=== PATIENT | female | born 1990 | race American Indian/Alaskan Native ===

== ENCOUNTER 2016-08-27 14:23 | Inpatient (IN) | payer MEDICAID ==
[2016-08-27 15:00] LABS: Urine Drugs of Abuse Note Disclamer
[2016-08-27 15:17] LABS: Bacteria,Urine 1+ /HPF (Negative); Bilirubin,Urine NEG (Negative); Blood,Urine NEG (Negative); Ketones,Urine TR mg/dL (Negative); Leukocyte Esterase,Urine LG (Negative); Mucus,Urine 3+ /HPF; Nitrite,Urine NEG (Negative); Uric Acid Crystals,Urine 2+; Urobilinogen,Urine < 2.0 mg/dL (<2.0)
[2016-08-27] MEDS ORDERED: NORMODYNE IV PRN (17:23)
--- NOTE | 2016-08-27 17:42 | History and Physical Report ---
History of Present Illness Date of examination: 08/27/16 Chief complaint: No care History of present illness: A 25-year-old at 34+1 week (ALYSSA 10/07/16 via sono today in triage) presents to [facility] for care. Essential history this patient with no care this . Was seen at an outside clinic and told to proceed to the hospital as her gestational age was too advanced. Gives a history of 2 prior complicated by pre-E Past History Past Medical History: no pertinent history Past Surgical History: section [employer] History: herpes. denies: cancer, chlamydia, gonorrhea, hepatitis B, hepatitis C, HIV, syphilis Social history: single, full code. denies: smoking, alcohol abuse, prescription drug abuse, IV drug use - Obstetrical History Expected Date of Delivery: 10/07/16 Actual Gestation: 34 Week(s) 1 Day(s) : 3 Para: 2 Hx # Term Pregnancies: 0 Number of Pregnancies: 2 Number of Living Children: 2 Medications and Allergies Allergies Allergy/AdvReac Type Severity Reaction Status Date / Time No Known Allergies Allergy Verified 02/02/16 02:25 Home Medications Medication Instructions Recorded Confirmed Last Taken Type No Known Home Medications [No 02/02/16 02/02/16 Unknown History Reported Home Medications] Active Meds: Active Medications Hydralazine HCl (Apresoline) 5 mg IV Q30MIN PRN PRN Reason: HTN SYS BP>170 & OR SERGIO BP>110 Lactated Ringer's (Lactated Ringers) 1,000 mls @ 125 mls/hr IV DIRECT KRYSTAL Labetalol HCl (Normodyne) 20 mg IV ONCE PRN PRN Reason: Hypertension Stop: 08/27/16 17:24 Labetalol HCl (Normodyne) 200 mg PO BID [facility] Review of Systems Constitutional: no weight gain, no fever, no chills, no sweats Cardiovascular: no syncope, no lightheadedness, no shortness of breath Respiratory: no shortness of breath, no dyspnea on exertion Gastrointestinal: heartburn, no abdominal pain, no nausea, no diarrhea Genitourinary: no vaginal bleeding, no vaginal discharge, no leakage of fluid, no pelvic pain, no genital sores - Vital Signs Vital signs: Vital Signs Temp Resp 97.7 F 18 08/27/16 15:10 08/27/16 15:10 Temp Pulse Resp BP Pulse Ox 97.7 F 18 08/27/16 15:10 08/27/16 15:10 - Physical Exam Cardiovascular: Regular rate, Normal S1, Normal S2 Lungs: Positive: Clear to auscultation, Normal air movement Abdomen: Positive: normal appearance, soft. Negative: distention, tenderness, guarding, rigidity Genitourinary (Female): Positive: normal external genitalia Results Abnormal lab results 08/27/16 Range/Units Unknown Urine WBC (Auto) 22.0 H (0.0-6.0) /HPF U Epithel Cells (Auto) 22.0 H (0-13.0) /HPF All other labs normal. Assessment and Plan A: 25 y/o at 34+1 wks -BP ~ 140-150/80-100's Issues -No PNC this -Elevated blood pressure -Previous 1 -Oral history of preeclampsia 2 -Fundal placenta w/ cephalic presentstaion P: -Admit -Obtain HELLP labs and 24-hour urine protein -Celestone course -Start magnesium or antihypertensives for BP severe range -Emphasized importance of obtaining care -Disposition after labs complete - Patient Problems (1) 34 weeks gestation of Current Visit: Yes Status: Acute (2) No care in current Current Visit: Yes Status: Acute (3) Hypertension affecting Current Visit: Yes Status: Acute (4) Previous delivery affecting Current Visit: Yes Status: Acute
[2016-08-27] MEDS: CELESTONE SOLUSPAN IM SCH (19:36)
[2016-08-27] MEDS: NORMODYNE PO SCH ×2 (20:39→22:59)
[2016-08-27 20:47] LABS: Albumin 3.4 g/dL (3.9-5); Albumin/Globulin Ratio 1.4 %; Alkaline Phosphatase 122 units/L (35-129); Bilirubin,Total 0.4 mg/dL (0.1-1.2); Blood Urea Nitrogen 5 mg/dL (7-17); Calcium 8.5 mg/dL (8.4-10.2); Carbon Dioxide 21 mmol/L (22-30); Chloride 97.1 mmol/L (98-107); Glucose 81 mg/dL (65-100); Potassium 4.2 mmol/L (3.6-5.0); Sodium 133 mmol/L (137-145); Total Protein 5.8 g/dL (6.3-8.2)
[2016-08-27 20:50] LABS: Alanine Aminotransferase < 5 units/L (7-56); Anion Gap 19 mmol/L
[2016-08-27 21:16] LABS: HIV-1 Antigen p24 Non React (Non React); HIVR-1/2 Ab Non React (Non React)
[2016-08-27] MEDS: ALUM-MAG HYDROX-SIMETH 200-200-20MG/5ML PO PRN (21:31)
[2016-08-27] MEDS: LACTATED RINGERS 1,000 ML IV SCH (21:33)
--- NOTE | 2016-08-28 08:32 | Progress Note ---
Assessment and Plan A: 25 y/o at 34+2 wks -New onset headache this a.m. Issues -BP ~ 140-180/60-100's -No PNC this -Previous 1 -Oral history of preeclampsia 2 -Fundal placenta w/ cephalic presentation -Negative HELLP labs Meds: -Labetalol 200mg BID -s/p 1st dose Celestone on 08/27/16 at ~ 19:30 P: -Tylenol for headache at this time -MFM consult requested -24 hour urine protein to be completed at ~ 8-9 PM -Consider magnesium if headache not relieved with Analgesic - Patient Problems (1) 34 weeks gestation of Current Visit: Yes Status: Acute (2) No care in current Current Visit: Yes Status: Acute (3) Hypertension affecting Current Visit: Yes Status: Acute (4) Previous delivery affecting Current Visit: Yes Status: Acute Subjective - Subjective Date of service: 08/28/16 Interval history: Patient seen and examined, she has a headache this morning. No scotomata, no epigastric pain. Positive movement BP still labile with range ~ 140s to 180s over 60s to 100s; she is on labetalol 200 mg twice a day. Patient reports: new complaints (New onset headache), movement normal, no loss of fluid, no vaginal bleeding, no contractions Objective - Vital Signs Vital Signs: Vital Signs - 12hr 08/27/16 08/27/16 08/27/16 20:27 20:32 20:37 Temperature Pulse Rate 83 89 85 Pulse Rate [ From Monitor] Respiratory Rate Blood Pressure Blood Pressure [Right Arm] O2 Sat by Pulse 96 96 97 Oximetry 08/27/16 08/27/16 08/27/16 20:39 20:40 20:42 Temperature Pulse Rate 77 86 77 Pulse Rate [ From Monitor] Respiratory Rate Blood Pressure 153/111 153/111 Blood Pressure [Right Arm] O2 Sat by Pulse 96 Oximetry 08/27/16 08/27/16 08/27/16 20:47 20:52 20:54 Temperature Pulse Rate 84 85 77 Pulse Rate [ From Monitor] Respiratory Rate Blood Pressure 155/100 Blood Pressure [Right Arm] O2 Sat by Pulse 96 97 Oximetry 08/27/16 08/27/16 08/27/16 20:57 20:58 21:05 Temperature Pulse Rate 92 H 56 L 105 H Pulse Rate [ From Monitor] Respiratory Rate Blood Pressure Blood Pressure [Right Arm] O2 Sat by Pulse 96 81 L 97 Oximetry 08/27/16 08/27/16 08/27/16 21:09 21:10 21:15 Temperature Pulse Rate 85 88 83 Pulse Rate [ From Monitor] Respiratory Rate Blood Pressure 168/97 Blood Pressure [Right Arm] O2 Sat by Pulse 94 98 94 Oximetry 08/27/16 08/27/16 08/27/16 21:27 21:30 21:32 Temperature 97.6 F Pulse Rate 79 92 H Pulse Rate [ From Monitor] Respiratory 20 Rate Blood Pressure Blood Pressure [Right Arm] O2 Sat by Pulse 97 96 Oximetry 08/27/16 08/27/16 08/27/16 21:38 21:40 21:54 Temperature Pulse Rate 80 85 86 Pulse Rate [ From Monitor] Respiratory Rate Blood Pressure 159/93 140/89 139/87 Blood Pressure [Right Arm] O2 Sat by Pulse Oximetry 08/27/16 08/27/16 08/27/16 22:10 22:24 23:30 Temperature Pulse Rate 87 104 H 86 Pulse Rate [ From Monitor] Respiratory Rate Blood Pressure 146/78 142/87 121/67 Blood Pressure [Right Arm] O2 Sat by Pulse Oximetry 08/28/16 08/28/16 08/28/16 00:30 01:31 02:30 Temperature Pulse Rate 101 H 96 H 73 Pulse Rate [ From Monitor] Respiratory Rate Blood Pressure 124/75 155/98 182/107 Blood Pressure [Right Arm] O2 Sat by Pulse Oximetry 08/28/16 08/28/16 08/28/16 02:40 04:34 04:35 Temperature Pulse Rate 86 91 H 95 H Pulse Rate [ From Monitor] Respiratory Rate Blood Pressure 142/82 134/83 Blood Pressure [Right Arm] O2 Sat by Pulse 96 Oximetry 08/28/16 08/28/16 08/28/16 04:42 08:07 08:08 Temperature 97.6 F 98.8 F Pulse Rate 99 H Pulse Rate [ 102 H From Monitor] Respiratory 20 18 Rate Blood Pressure 140/85 Blood Pressure 140/85 [Right Arm] O2 Sat by Pulse 97 97 Oximetry - Exam Abdomen: Present: normal appearance, soft. Absent: distention, tenderness, guarding, rigidity - Labs Labs: Abnormal Labs 08/27/16 08/27/16 19:45 Unknown Sodium 133 L Chloride 97.1 L Carbon Dioxide 21 L BUN 5 L Creatinine 0.4 L ALT < 5 L Total Protein 5.8 L Albumin 3.4 L Urine WBC (Auto) 22.0 H U Epithel Cells (Auto) 22.0 H Laboratory Results - last 24 hr 08/27/16 08/27/16 08/27/16 19:45 19:45 19:45 Sodium 133 L Potassium 4.2 Chloride 97.1 L Carbon Dioxide 21 L Anion Gap 19 BUN 5 L Creatinine 0.4 L Estimated GFR > 60 BUN/Creatinine Ratio 12.50 Glucose 81 Calcium 8.5 Total Bilirubin 0.4 AST 15 ALT < 5 L Alkaline Phosphatase 122 Total Protein 5.8 L Albumin 3.4 L Albumin/Globulin Ratio 1.4 Urine Color Urine Turbidity Urine pH Ur Specific Pepin Urine Protein Urine Glucose (UA) Urine Ketones Urine Blood Urine Nitrite Urine Bilirubin Urine Urobilinogen Ur Leukocyte Esterase Urine WBC (Auto) Urine RBC (Auto) U Epithel Cells (Auto) Urine Bacteria (Auto) Uric Acid Crystals Urine Mucus Urine Opiates Screen Urine Methadone Screen Ur Barbiturates Screen Ur Phencyclidine Scrn Ur Amphetamines Screen U Benzodiazepines Scrn Urine Cocaine Screen U Marijuana (THC) Screen Drugs of Abuse Note Hep Bs Antigen Non-reactive Hepatitis C Antibody Non-reactive HIV 1&2 Antibody Rapid HIV P24 Antigen Rubella IgG Antibody Immune 08/27/16 08/27/16 08/27/16 19:45 Unknown Unknown Sodium Potassium Chloride Carbon Dioxide Anion Gap BUN Creatinine Estimated GFR BUN/Creatinine Ratio Glucose Calcium Total Bilirubin AST ALT Alkaline Phosphatase Total Protein Albumin Albumin/Globulin Ratio Urine Color Shefali Urine Turbidity Clear Urine pH 5.0 Ur Specific Pepin 1.028 Urine Protein 30 mg/dl Urine Glucose (UA) Neg Urine Ketones Tr Urine Blood Neg Urine Nitrite Neg Urine Bilirubin Neg Urine Urobilinogen < 2.0 Ur Leukocyte Esterase Lg Urine WBC (Auto) 22.0 H Urine RBC (Auto) 7.0 U Epithel Cells (Auto) 22.0 H Urine Bacteria (Auto) 1+ Uric Acid Crystals 2+ Urine Mucus 3+ Urine Opiates Screen Presumptive negative Urine Methadone Screen Presumptive negative Ur Barbiturates Screen Presumptive negative Ur Phencyclidine Scrn Presumptive negative Ur Amphetamines Screen Presumptive negative U Benzodiazepines Scrn Presumptive negative Urine Cocaine Screen Presumptive negative U Marijuana (THC) Screen Presumptive negative Drugs of Abuse Note Disclamer Hep Bs Antigen Hepatitis C Antibody HIV 1&2 Antibody Rapid Non react HIV P24 Antigen Non react Rubella IgG Antibody
[2016-08-28] MEDS: TYLENOL PO PRN ×2 (08:38→15:43)
[2016-08-28] MEDS: NORMODYNE PO SCH ×2 (10:20→22:22)
--- NOTE | 2016-08-28 11:28 | Ultrasound Report ---
OB ULTRASOUND: Transabdominal imaging. Gestation: Spears Position: Cephalic Amniotic Fluid: WNL (7-24 cm) KARLIE = 11.2 cm Placenta: Fundal Placental Grade: I Heart Rate: 148 BPM Cervical length: 3.0 cm (Normal > 3 cm) NEUROANATOMY VISUALIZED: Choroid Plexus Lateral Ventricle ANATOMY VISUALIZED: Stomach Kidneys Bladder Diaphragm 4 Chamber Heart Heart 3 Vessel Cord Abd. Cord Insert SPINE VISUALIZED: Longitudinal Transverse AP The following are not demonstrated due to maternal body habitus or lie: Cerebellum, cisterna magnum. BPD: 8.6 cm = 34 w 5 d HC: 31.0 cm = 34 w 4 d AC: 28.2 cm = 32 w 2 d FL: 6.8 cm = 34 w 6 d HC/AC Ratio: 1.10 Cephalic Index: 83.9 Estimated Weight: 2211 grams LMP: 12-18-15 Clinical age = 36 w 1 d EDC: 09-23-16 US Gest. Age = 34 w 1 d EDC: 10-07-16 COMMENT: No gestational abnormality identified.
[2016-08-28] MEDS: ALUM-MAG HYDROX-SIMETH 200-200-20MG/5ML PO PRN ×3 (11:48→20:46)
--- NOTE | 2016-08-28 13:32 | Consultation ---
History of Present Illness Consult date: 08/28/16 Requesting physician: NIKUNJ MONROE History of present illness: History of present illness: 25-year-old at 34+2 week (ALYSSA 10/07/16 via sono today in triage) presents to [facility] for care. No Care History of Preeclampsia X 2 at 35 weeks and 30 weeks with Abruption Presented with Elevated BP's - 182/107 and 155/98 - Now on Labetalol 100 mg BID and recent BP's 130-140's/80's RUBIO on admission of 04/02 now resolved. Denies Scotoma or RUQ Pain Trace Edema Essential history this patient with no care this . Was seen at an outside clinic and told to proceed to the hospital as her gestational age was too advanced. 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 denies: cancer, chlamydia, gonorrhea, hepatitis B, hepatitis C, HIV, syphilis Social history: single, full code. 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 denies: cancer, chlamydia, gonorrhea, hepatitis B, hepatitis C, HIV, syphilis - Obstetrical History : 3 Medications and Allergies Allergies Allergy/AdvReac Type Severity Reaction Status Date / Time No Known Allergies Allergy Verified 02/02/16 02:25 Home Medications Medication Instructions Recorded Confirmed Last Taken Type No Known Home Medications [No 02/02/16 08/27/16 Unknown History Reported Home Medications] Active Meds: Active Medications Acetaminophen (Tylenol) 650 mg PO Q4H PRN PRN Reason: Pain, Mild (1-3) Last Admin: 08/28/16 08:38 Dose: 650 mg Al Hydrox/Mg Hydrox/Simethicone (Alum-Mag Hydrox-Simeth [id number]/5ml) 30 ml PO Q4H PRN PRN Reason: Indigestion Last Admin: 08/28/16 11:48 Dose: 30 ml Betamethasone Acet/Betameth SodPhos (Celestone Soluspan) 12 mg IM Q24H KRYSTAL Stop: 08/28/16 18:01 Last Admin: 08/27/16 19:36 Dose: 12 mg Hydralazine HCl (Apresoline) 5 mg IV Q30MIN PRN PRN Reason: HTN SYS BP>170 & OR SERGIO BP>110 Lactated Ringer's (Lactated Ringers) 1,000 mls @ 125 mls/hr IV DIRECT [facility] Last Admin: 08/27/16 21:33 Dose: 125 mls/hr Labetalol HCl (Normodyne) 200 mg PO BID KRYSTAL Last Admin: 08/28/16 10:20 Dose: 200 mg - Vital Signs Vital signs: Vital Signs Temp Resp 97.7 F 18 08/27/16 15:10 08/27/16 15:10 Temp Pulse Resp BP Pulse Ox 98.6 F 109 H 18 134/83 98 08/28/16 11:52 08/28/16 11:52 08/28/16 11:52 08/28/16 11:52 08/28/16 11:52 Results Result Diagrams: 08/27/16 19:45 Abnormal lab results 08/27/16 08/27/16 Range/Units 19:45 Unknown Sodium 133 L (137-145) mmol/L Chloride 97.1 L (98-107) mmol/L Carbon Dioxide 21 L (22-30) mmol/L BUN 5 L (7-17) mg/dL Creatinine 0.4 L (0.7-1.2) mg/dL ALT < 5 L (7-56) units/L Total Protein 5.8 L (6.3-8.2) g/dL Albumin 3.4 L (3.9-5) g/dL Urine WBC (Auto) 22.0 H (0.0-6.0) /HPF U Epithel Cells (Auto) 22.0 H (0-13.0) /HPF All other labs normal. Assessment and Plan Assesment 1. Spears IUP at 34 2/7 weeks 2. Suspected H/O of CHTN (BP was elevated after first preg per patient) 3. R/O Superimposed Preeclampsia 4. H/O Preeclampsia X 2 (Second Preg with Abruption at 30 weeks) 5. No Care 6. HSV II Recommendations: 1. Currently on Labetalol 100 BID ordered by OB 2. Steroids X 2 3. NICU Consult 4. BPP with Cord Arterial Dopplers 5. CBC and HbA1c (patient has not had 1 Hour GTT and received steroids) 6. 24 Hour urine pending 7. Try to obtain medical records and past C/S Op note 8. Deliver for S/S of severe preeclampsia or compromise 9. IV Hydralazine for BP' Sys > 170 or [place] > 110 10. Monitor Closely due to sig past OB history 11. Valtrex 500 q day
[2016-08-28] MEDS: LACTATED RINGERS 1,000 ML IV SCH (15:46)
[2016-08-28 16:29] LABS: Hematocrit 25.3 % (30.3-42.9); Hemoglobin 7.9 gm/dl (10.1-14.3); Mean Corpuscular HGB Conc 31 % (30-34); Mean Corpuscular Hemoglobin 21 pg (28-32); Mean Corpuscular Volume 67 fl (79-97); Platelet Count 166 K/mm3 (140-440); Red Blood Count 3.79 M/mm3 (3.65-5.03); Red Cell Distribution Width 16.4 % (13.2-15.2); White Blood Count 19.5 K/mm3 (4.5-11.0)
[2016-08-28] MEDS: VALTREX PO SCH (18:16)
[2016-08-28] MEDS: CELESTONE SOLUSPAN IM SCH (19:37)
[2016-08-29] MEDS: LACTATED RINGERS 1,000 ML IV SCH ×2 (01:52→15:10)
[2016-08-29] MEDS ORDERED: NACL 0.9% 500 ML 500 ML IV ONE (06:08)
[2016-08-29] MEDS: MAGNESIUM SULFATE 40GM/1000ML 1,000 ML IV SCH (07:06)
--- NOTE | 2016-08-29 08:18 | Ultrasound Report ---
BIOPHYSICAL PROFILE: INDICATION: Preeclampsia. COMPARISON: None similar. TECHNIQUE: Transabdominal ultrasound with Doppler interrogation. 2 - breathing movements 2 - movements 2 - posture and tone 2 - Qualitative amniotic fluid volume 8 - TOTAL SCORE OF POSSIBLE 8 Heart Rate (bpm) 152
[2016-08-29] MEDS: NORMODYNE PO SCH ×2 (10:13→22:59)
[2016-08-29] MEDS: VALTREX PO SCH (10:14)
--- NOTE | 2016-08-29 12:02 | Ultrasound Report ---
Umbilical cord Doppler imaging: Images of 33 umbilical cord loops demonstrates a persistent flow pattern with systolic over diastolic ratio averaging 2.46. This is within the 25-50 percentile range being close to 50%. The average resistive index is 0.59 which is within the 50-95 percentile range but much closer to the 50%.
[2016-08-29] MEDS: TYLENOL PO PRN ×2 (12:52→20:44)
--- NOTE | 2016-08-29 18:14 | Progress Note ---
Assessment and Plan A: IUP @ 34 3/7 weeks Chronic hypertension - stable on Labetolol 200mg BID Mild Preeclampsia - stable - s/p Celestone Previous C Section No care P: Continue to monitor BP's Appreciate APA input Will deliver for S/S of Severe Preeclampsia Subjective - Subjective Date of service: 08/29/16 Principal diagnosis: IUP @ 34 3/7 weeks; Previous C/S; Preeclampsia; No Care Interval history: Pt feeling well without complaints. Denies headaches or blurred vision. BP 122 /66 Currently on Labetolol 200mg BID Patient reports: new complaints (New onset headache), movement normal, no loss of fluid, no vaginal bleeding, no contractions Objective - Vital Signs Vital Signs: Vital Signs - 12hr 08/29/16 08/29/16 08/29/16 07:30 07:40 09:53 Temperature 98.6 F Pulse Rate 85 91 H Respiratory 18 Rate Blood Pressure 139/77 135/86 O2 Sat by Pulse Oximetry 08/29/16 08/29/16 08/29/16 10:13 10:43 11:43 Temperature Pulse Rate 91 H 90 102 H Respiratory Rate Blood Pressure 135/86 124/67 133/77 O2 Sat by Pulse Oximetry 08/29/16 08/29/16 08/29/16 12:47 12:51 13:43 Temperature 97.7 F Pulse Rate 96 H 103 H Respiratory 16 Rate Blood Pressure 131/75 121/68 O2 Sat by Pulse Oximetry 08/29/16 08/29/16 08/29/16 13:48 13:53 13:58 Temperature Pulse Rate 104 H 102 H 101 H Respiratory Rate Blood Pressure O2 Sat by Pulse 97 97 97 Oximetry 08/29/16 08/29/16 08/29/16 14:03 14:08 14:13 Temperature Pulse Rate 101 H 101 H 104 H Respiratory Rate Blood Pressure O2 Sat by Pulse 96 97 96 Oximetry 08/29/16 08/29/16 08/29/16 14:18 14:23 14:28 Temperature Pulse Rate 99 H 102 H 100 H Respiratory Rate Blood Pressure O2 Sat by Pulse 96 97 97 Oximetry 08/29/16 08/29/16 08/29/16 14:33 14:38 14:43 Temperature Pulse Rate 101 H 103 H 103 H Respiratory Rate Blood Pressure 121/69 O2 Sat by Pulse 97 97 96 Oximetry 08/29/16 08/29/16 08/29/16 14:48 14:53 14:58 Temperature Pulse Rate 102 H 98 H 101 H Respiratory Rate Blood Pressure O2 Sat by Pulse 97 97 97 Oximetry 08/29/16 08/29/16 08/29/16 15:03 15:08 15:13 Temperature Pulse Rate 101 H 99 H 105 H Respiratory Rate Blood Pressure O2 Sat by Pulse 97 97 97 Oximetry 08/29/16 08/29/16 08/29/16 15:18 15:23 15:28 Temperature Pulse Rate 98 H 101 H 98 H Respiratory Rate Blood Pressure O2 Sat by Pulse 97 97 97 Oximetry 08/29/16 08/29/16 08/29/16 15:33 15:38 15:43 Temperature Pulse Rate 97 H 99 H 94 H Respiratory Rate Blood Pressure 120/66 O2 Sat by Pulse 98 97 96 Oximetry 08/29/16 08/29/16 15:48 16:10 Temperature Pulse Rate 98 H 107 H Respiratory Rate Blood Pressure O2 Sat by Pulse 98 96 Oximetry - Exam Cardiovascular: Regular rate Lungs: Clear to auscultation Abdomen: Present: normal appearance, soft Uterus: Present: normal FHR: category 1 Uterine Contraction Monitor Mode: External Uterine Contraction Pattern: Absent - Labs Labs: Abnormal Labs 08/27/16 08/27/16 08/28/16 19:45 Unknown 04:00 WBC Hgb Hct MCV MCH RDW Sodium 133 L Chloride 97.1 L Carbon Dioxide 21 L BUN 5 L Creatinine 0.4 L Magnesium ALT < 5 L Total Protein 5.8 L Albumin 3.4 L Urine WBC (Auto) 22.0 H U Epithel Cells (Auto) 22.0 H Ur Total Protein 24 Hr 300.00 H Urine Total Protein 24 H Crossmatch 08/28/16 08/29/16 08/29/16 15:50 06:25 12:25 WBC 19.5 H Hgb 7.9 L Hct 25.3 L MCV 67 L MCH 21 L RDW 16.4 H Sodium Chloride Carbon Dioxide BUN Creatinine Magnesium 3.9 H ALT Total Protein Albumin Urine WBC (Auto) U Epithel Cells (Auto) Ur Total Protein 24 Hr Urine Total Protein Crossmatch See Detail Laboratory Results - last 24 hr 08/28/16 08/29/16 08/29/16 04:00 06:25 12:25 Magnesium 3.9 H Urine Total Volume 1250 Ur Total Protein 24 Hr 300.00 H Urine Total Protein 24 H Blood Type O NEGATIVE Antibody Screen Negative Crossmatch See Detail
--- NOTE | 2016-08-30 07:29 | Progress Note ---
Assessment and Plan A: IUP @ 34 4/7 weeks Chronic hypertension - stable on Labetolol 200mg BID Severe Preeclampsia - worsening symptoms - s/p Celestone Previous C Section No care P: Continue to monitor BP's Appreciate APA input Will proceed with Repeat C Section due to S/S of Severe Preeclampsia Subjective - Subjective Date of service: 08/30/16 Principal diagnosis: IUP @ 34 4/7 weeks; Previous C/S; Preeclampsia; No Care Interval history: Pt complaining of worsening headaches and blurred vision. BP 136/78 Currently on Labetolol 200mg BID Patient reports: new complaints (Worsening headache), movement normal, no loss of fluid, no vaginal bleeding, no contractions Objective - Vital Signs Vital Signs: Vital Signs - 12hr 08/29/16 08/29/16 08/29/16 19:28 19:47 20:44 Temperature 97.7 F Pulse Rate 94 H Pulse Rate [ 103 H From Monitor] Respiratory 14 16 Rate Blood Pressure 132/84 Blood Pressure 132/84 [Right Arm] 08/29/16 08/29/16 22:59 23:01 Temperature Pulse Rate 87 87 Pulse Rate [ From Monitor] Respiratory Rate Blood Pressure 136/78 136/78 Blood Pressure [Right Arm] - Exam Cardiovascular: Regular rate Lungs: Clear to auscultation Abdomen: Present: normal appearance Uterus: Present: normal FHR: category 1 Uterine Contraction Pattern: Absent - Labs Labs: Abnormal Labs 08/27/16 08/27/16 08/28/16 19:45 Unknown 04:00 WBC Hgb Hct MCV MCH RDW Sodium 133 L Chloride 97.1 L Carbon Dioxide 21 L BUN 5 L Creatinine 0.4 L Magnesium ALT < 5 L Total Protein 5.8 L Albumin 3.4 L Urine WBC (Auto) 22.0 H U Epithel Cells (Auto) 22.0 H Ur Total Protein 24 Hr 300.00 H Urine Total Protein 24 H Crossmatch 08/28/16 08/29/16 08/29/16 15:50 06:25 12:25 WBC 19.5 H Hgb 7.9 L Hct 25.3 L MCV 67 L MCH 21 L RDW 16.4 H Sodium Chloride Carbon Dioxide BUN Creatinine Magnesium 3.9 H ALT Total Protein Albumin Urine WBC (Auto) U Epithel Cells (Auto) Ur Total Protein 24 Hr Urine Total Protein Crossmatch See Detail 08/29/16 18:45 WBC Hgb Hct MCV MCH RDW Sodium Chloride Carbon Dioxide BUN Creatinine Magnesium 4.6 H ALT Total Protein Albumin Urine WBC (Auto) U Epithel Cells (Auto) Ur Total Protein 24 Hr Urine Total Protein Crossmatch Laboratory Results - last 24 hr 08/29/16 08/29/16 08/29/16 06:25 12:25 18:45 Magnesium 3.9 H 4.6 H Blood Type O NEGATIVE Antibody Screen Negative Crossmatch See Detail
[2016-08-30] MEDS ORDERED: REGLAN IV ONE (08:28)
[2016-08-30] MEDS ORDERED: BICITRA PO ONE (08:28)
[2016-08-30] MEDS ORDERED: PEPCID IV ONE (08:28)
[2016-08-30] MEDS: LACTATED RINGERS 1,000 ML IV SCH ×2 (08:43→19:55)
[2016-08-30] MEDS ORDERED: PITOCin/NS 20 UNIT/1000ML DRIP 1,000 ML IV NR (09:00)
[2016-08-30] MEDS ORDERED: LACTATED RINGERS 1,000 ML IV NR (09:00)
[2016-08-30] MEDS ORDERED: ANCEF/STERILE WATER 2 GM/20 ML 20 ML IV NR (09:00)
[2016-08-30] MEDS ORDERED: MORPHINE ONE (09:00)
[2016-08-30] MEDS ORDERED: XYLOCAINE MPF 2% ONE (09:29)
[2016-08-30] MEDS ORDERED: ZOFRAN ONE (09:30)
[2016-08-30] MEDS ORDERED: NACL 0.9% 100 ML ONE (09:43)
[2016-08-30] MEDS ORDERED: NEO SYNEPHRINE ONE (09:43)
[2016-08-30] MEDS ORDERED: VERSED ONE (09:53)
[2016-08-30] MEDS ORDERED: SENOKOT PO PRN (10:19)
[2016-08-30] MEDS ORDERED: MILK OF MAGNESIA PO PRN (10:19)
[2016-08-30] MEDS ORDERED: PHENERGAN PR PRN (10:19)
[2016-08-30] MEDS ORDERED: ZOFRAN IV PRN (10:19)
[2016-08-30] MEDS ORDERED: NARCAN 0.4 MG/1 ML IV PRN (10:19)
[2016-08-30] MEDS ORDERED: TUCKS PAD TP PRN (10:19)
[2016-08-30] MEDS ORDERED: LANSINOH TP PRN (10:19)
[2016-08-30] MEDS ORDERED: PERCOCET 5/325 PO PRN (10:19)
[2016-08-30] MEDS ORDERED: TORADOL IV PRN (10:19)
[2016-08-30] MEDS ORDERED: MYLICON PO PRN (10:19)
--- NOTE | 2016-08-30 10:36 | Anesthesia Consultation ---
Anesthesia Consult and Med Hx Date of service: 08/30/16 - Airway Anesthetic Teeth Evaluation: Good ROM Head & Neck: Adequate Mental/Hyoid Distance: Adequate Mallampati Class: Class II Intubation Access Assessment: Probably Good - Pulmonary Exam CTA: Yes - Cardiac Exam Cardiac Exam: RRR - Pre-Operative Health Status Proposed Anesthetic Plan: Spinal - Pulmonary Hx Asthma: No COPD: No Hx Pneumonia: No - Cardiovascular System Hx Hypertension: Yes (severe pre-eclampsia) Hx Coronary Artery Disease: No - Central Nervous System Hx Seizures: No Hx Psychiatric Problems: No - Endocrine Hx Renal Disease: No Hx End Stage Renal Disease: No Hx Hypothyroidism: No Hx Hyperthyroidism: No - Hematic Hx Anemia: Yes Hx Sickle Cell Disease: No - Other Systems Hx Alcohol Use: No Hx Obesity: Yes (bmi 32.9) - Additional Comments Anesthesia Medical History Comments: +34.4 wks
[2016-08-30] MEDS ORDERED: MORPHINE IV PRN (10:37)
--- NOTE | 2016-08-30 10:37 | Anesthesia Day of Surgery ---
Anesthesia Day of Surgery - Day of Surgery Patient Examined: Yes Patient H&P Reviewed: Yes Patient is NPO: Yes
--- NOTE | 2016-08-30 10:37 | Post Anesthesia Evaluation ---
- Post Anesthesia Evaluation Patient Participated: Yes Airway Patent: Yes Stable Respiratory Function: Yes Nausea/Vomiting: No Temp > 96.8F: Yes Pain Manageable: Yes Adequeate Hydration: Yes Anesthesia Complications: No Block Receding Appropriately: Yes Patient on Ventilator: No
[2016-08-30] MEDS: NORMODYNE PO SCH ×2 (10:38→21:48)
[2016-08-30] MEDS: MAGNESIUM SULFATE 40GM/1000ML 1,000 ML IV SCH (10:38)
[2016-08-30] MEDS: VALTREX PO SCH (10:39)
--- NOTE | 2016-08-30 10:39 | Operative Report ---
Operative Report Operative Report: Date of procedure: 08/30/2016 Pre-operative diagnosis: 1. Intrauterine at 34-4/7 weeks 2. Severe preeclampsia 3. Previous section 4. No care 5. Desires permanent sterilization Post-operative diagnosis: Same Procedure name(s): 1. Repeat low transverse section 2. Bilateral tubal ligation Surgeon: Jason Nevarez MD Harness Inspector: None Anesthesia: Spinal anesthesia by Dr. Campbell EBL: 500 mL's Findings: A 2470 g female infant Apgars 8 at 1 minute 9 at 5 minutes. Nuchal cord 2. Clear amniotic fluid. Normal uterus. Normal tubes and ovaries bilaterally Procedure: After the patient was prepped and draped in usual sterile fashion, and after satisfactory level of epidural anesthesia was obtained, the skin knife was used to make a transverse skin incision through the previous skin scar. The incision was excised down to layer of the fascia, which was nicked in the midline and extended laterally using the Bovie cautery. The rectus muscles were dissected off the rectus fascia both superiorly and inferiorly. The rectus bellies in the midline, and the peritoneum was entered under direct visualization. The peritoneal incision was extended superiorly and inferiorly. A bladder flap was created and the bladder blade was then placed. The uterus was scored in a curvilinear linear fashion, entered in the midline revealing clear amniotic fluid. The 's head was delivered onto the surgical field, nuchal cord 2 reduced, and the oropharynx and nasopharynx were bulb suctioned. The rest of the 's body was delivered, cord was doubly clamped and cut and the was handed to the waiting respiratory team. Cord blood was then obtained. The placenta was manually removed from the uterus, and the uterus removed from its normal anatomical position. After gentle uterine lavage, the incision was inspected and found to be without extensions. It was then closed in 2 layers using 0 Vicryl suture in a running interlocking fashion, the second layer imbricating the first. Attention was then turned to the tubal ligation. First the right fallopian tube was grasped using Miguel, and after identifying the fimbriated end of the right tube a Filshie clip was applied to the poximal portion of the tube. The same procedure was performed on the left fallopian tube. The left fallopian tube was grasped using the [place], and after identifying the fimbriated end of the left tube a Filshie clip was applied to the proximal portion of the tube. After good hemostasis was achieved, copious amounts or irrigation was performed, and the gutters were suctioned free of blood and blood clots. The Tisseel sealant was sprayed across the uterine incision. The uterus was then returned to its normal anatomical position, and after excellent hemostasis assured, the peritoneum was reapproximated using 3-0 Vicryl suture in a running interlocking fashion, and then the rectus muscles were reapproximated using 3-0 Vicryl suture in a [id number] configuration. The fascia was then reapproximated using 0 Vicryl suture in running interlocking fashion. The subcutaneous layer was made hemostatic using Bovie cautery, the Tisseel sealant was sprayed across the fascial incision and the skin edges reapproximated using 4-0 Vicryl suture in a subcuticular fashion. Patient tolerated the procedure well was transported to recovery in stable condition.
[2016-08-30] MEDS: APRESOLINE IV PRN (10:50)
[2016-08-30] MEDS ORDERED: PITOCin/NS 20 UNIT/1000ML DRIP 1,000 ML IV SCH (11:00)
[2016-08-30] MEDS ORDERED: D5LR 1,000 ML IV SCH (11:00)
[2016-08-30] MEDS ORDERED: ANCEF/NS 1 GM/50 ML 50 ML IV SCH (11:00)
[2016-08-30] MEDS ORDERED: SODIUM CHLORIDE FLUSH SYRINGE 10 ML IV NR (11:00)
[2016-08-30] MEDS ORDERED: WATER FOR IRRIG STERILE IR ONE (11:04)
[2016-08-30] MEDS ORDERED: NACL 0.9% IR ONE (11:04)
[2016-08-30] MEDS ORDERED: BENADRYL IV PRN (15:40)
[2016-08-30] MEDS ORDERED: BENADRYL PO PRN (15:41)
[2016-08-30] MEDS: ANCEF/NS 1 GM/50 ML 50 ML IV SCH ×2 (15:47→23:37)
[2016-08-30] MEDS ORDERED: BENADRYL IV ONE (19:00)
[2016-08-30 21:04] LABS: Hematocrit 25.6 % (30.3-42.9); Hemoglobin 7.9 gm/dl (10.1-14.3)
[2016-08-31] MEDS: MAGNESIUM SULFATE 40GM/1000ML 1,000 ML IV SCH (03:42)
--- NOTE | 2016-08-31 09:46 | Progress Note ---
Assessment and Plan A: S/P Repeat C Section with BTL - POD #1 Doing well Preeclampsia - currently on Magnesium sulfate and Labetolol 200mg BID No care P: Continue present management Will d/c magnesium sulfate after 24hrs Continue BP management - will add IV hydralazine to achieve control Subjective - Subjective Date of service: 08/31/16 Principal diagnosis: s/p Repeat C Section with BTL - POD #1 Interval history: Pt is feeling well, just sleepy. BP 162/100 Currently on Magnesium sulfate x 24hrs and Labetolol 200mg BID Patient reports: appetite normal, voiding normally (waters), pain well controlled , no flatus, no ambulating normally [place]: doing well, in NICU Objective - Vital Signs Latest vital signs: Vital Signs Temp Pulse Pulse Resp BP BP Pulse Ox 08/31/16 07:51 98.2 F 80 20 162/100 08/31/16 06:00 98.2 F 97 H 20 157/97 08/31/16 04:00 76 20 137/89 08/31/16 02:25 83 20 135/86 08/31/16 00:30 97.4 F L 64 20 143/95 08/30/16 21:48 86 156/90 08/30/16 21:43 20 08/30/16 20:15 97.9 F 64 18 143/96 08/30/16 18:28 97.8 F 67 18 155/95 08/30/16 16:20 97.8 F 70 20 147/91 08/30/16 13:45 97.5 F L 61 20 142/86 08/30/16 12:03 97.8 F 68 20 151/91 08/30/16 11:45 97.8 F 68 20 151/91 08/30/16 11:25 64 16 151/91 99 08/30/16 11:05 97.6 F 64 13 159/91 99 08/30/16 10:50 59 L 18 161/99 99 08/30/16 10:38 61 163/92 08/30/16 10:35 59 L 17 160/95 99 08/30/16 10:30 59 L 16 163/92 99 08/30/16 10:25 97.8 F 60 15 167/99 99 Intake and Output 08/30/16 08/31/16 08/31/16 22:59 06:59 14:59 Intake Total 900 1290 120 Output Total 900 2200 Balance 0 -910 120 Intake: IV 900 1050 Lactated Ringers 1,000 ml 450 600 @ 125 mls/hr IV DIRECT [facility] Rx#:[id number] Magnesium Sulfate 40Gm/ 400 400 1000ML 1,000 ml @ 2 GM/HR 50 mls/hr IV DIRECT KRYSTAL Rx#:[id number] Ancef/Ns 1 gm/50 ml 50 ml 50 50 @ 100 mls/hr IV Q8H KRYSTAL Rx#:[id number] Oral 120 Intake, Free Water 240 Output: Urine 900 2200 Indwelling Catheter 900 2200 Other: Total, Intake Amount 120 Total, Output Amount 400 1000 - Exam Cardiovascular: Present: Regular rate Lungs: Present: Clear to auscultation Abdomen: Present: normal appearance, soft Uterus: Present: normal, firm, fundal height below umbilicus Extremities: Present: normal Incision: Present: normal, dry, intact, dressed - Labs Labs: Abnormal lab results 08/30/16 08/30/16 Range/Units 20:50 20:50 Hgb 7.9 L (10.1-14.3) gm/dl Hct 25.6 L (30.3-42.9) % Magnesium 4.8 H (1.7-2.3) mg/dL Laboratory Tests 08/27/16 08/27/16 08/27/16 19:45 19:45 19:45 WBC RBC Hgb Hct MCV MCH MCHC RDW Plt Count Sodium 133 L Potassium 4.2 Chloride 97.1 L Carbon Dioxide 21 L Anion Gap 19 BUN 5 L Creatinine 0.4 L Estimated GFR > 60 BUN/Creatinine Ratio 12.50 Glucose 81 Hemoglobin A1c Calcium 8.5 Magnesium Total Bilirubin 0.4 AST 15 ALT < 5 L Alkaline Phosphatase 122 Total Protein 5.8 L Albumin 3.4 L Albumin/Globulin Ratio 1.4 Urine Color Urine Turbidity Urine pH Ur Specific [place] Urine Protein Urine Glucose (UA) Urine Ketones Urine Blood Urine Nitrite Urine Bilirubin Urine Urobilinogen Ur Leukocyte Esterase Urine WBC (Auto) Urine RBC (Auto) U Epithel Cells (Auto) Urine Bacteria (Auto) Uric Acid Crystals Urine Mucus Urine Total Volume Ur Total Protein 24 Hr Urine Total Protein Urine Opiates Screen Urine Methadone Screen Ur Barbiturates Screen Ur Phencyclidine Scrn Ur Amphetamines Screen U Benzodiazepines Scrn Urine Cocaine Screen U Marijuana (THC) Screen Drugs of Abuse Note RPR Hep Bs Antigen Non-reactive Hepatitis C Antibody Non-reactive HIV 1&2 Antibody Rapid HIV P24 Antigen Rubella IgG Antibody Immune Blood Type Antibody Screen Screen Crossmatch 08/27/16 08/27/16 08/27/16 19:45 19:45 Unknown WBC RBC Hgb Hct MCV MCH MCHC RDW Plt Count Sodium Potassium Chloride Carbon Dioxide Anion Gap BUN Creatinine Estimated GFR BUN/Creatinine Ratio Glucose Hemoglobin A1c Calcium Magnesium Total Bilirubin AST ALT Alkaline Phosphatase Total Protein Albumin Albumin/Globulin Ratio Urine Color [place] Urine Turbidity Clear Urine pH 5.0 Ur Specific [place] 1.028 Urine Protein 30 mg/dl Urine Glucose (UA) Neg Urine Ketones Tr Urine Blood Neg Urine Nitrite Neg Urine Bilirubin Neg Urine Urobilinogen < 2.0 Ur Leukocyte Esterase Lg Urine WBC (Auto) 22.0 H Urine RBC (Auto) 7.0 U Epithel Cells (Auto) 22.0 H Urine Bacteria (Auto) 1+ Uric Acid Crystals 2+ Urine Mucus 3+ Urine Total Volume Ur Total Protein 24 Hr Urine Total Protein Urine Opiates Screen Urine Methadone Screen Ur Barbiturates Screen Ur Phencyclidine Scrn Ur Amphetamines Screen U Benzodiazepines Scrn Urine Cocaine Screen U Marijuana (THC) Screen Drugs of Abuse Note RPR Nonreactive Hep Bs Antigen Hepatitis C Antibody HIV 1&2 Antibody Rapid Non react HIV P24 Antigen Non react Rubella IgG Antibody Blood Type Antibody Screen Screen Crossmatch 08/27/16 08/28/16 08/28/16 Unknown 04:00 15:50 WBC 19.5 H RBC 3.79 Hgb 7.9 L Hct 25.3 L MCV 67 L MCH 21 L MCHC 31 RDW 16.4 H Plt Count 166 Sodium Potassium Chloride Carbon Dioxide Anion Gap BUN Creatinine Estimated GFR BUN/Creatinine Ratio Glucose Hemoglobin A1c Calcium Magnesium Total Bilirubin AST ALT Alkaline Phosphatase Total Protein Albumin Albumin/Globulin Ratio Urine Color Urine Turbidity Urine pH Ur Specific [place] Urine Protein Urine Glucose (UA) Urine Ketones Urine Blood Urine Nitrite Urine Bilirubin Urine Urobilinogen Ur Leukocyte Esterase Urine WBC (Auto) Urine RBC (Auto) U Epithel Cells (Auto) Urine Bacteria (Auto) Uric Acid Crystals Urine Mucus Urine Total Volume 1250 Ur Total Protein 24 Hr 300.00 H Urine Total Protein 24 H Urine Opiates Screen Presumptive negative Urine Methadone Screen Presumptive negative Ur Barbiturates Screen Presumptive negative Ur Phencyclidine Scrn Presumptive negative Ur Amphetamines Screen Presumptive negative U Benzodiazepines Scrn Presumptive negative Urine Cocaine Screen Presumptive negative U Marijuana (THC) Screen Presumptive negative Drugs of Abuse Note Disclamer RPR Hep Bs Antigen Hepatitis C Antibody HIV 1&2 Antibody Rapid HIV P24 Antigen Rubella IgG Antibody Blood Type Antibody Screen Screen Crossmatch 08/28/16 08/29/16 08/29/16 15:50 06:25 12:25 WBC RBC Hgb Hct MCV MCH MCHC RDW Plt Count Sodium Potassium Chloride Carbon Dioxide Anion Gap BUN Creatinine Estimated GFR BUN/Creatinine Ratio Glucose Hemoglobin A1c 5.0 Calcium Magnesium 3.9 H Total Bilirubin AST ALT Alkaline Phosphatase Total Protein Albumin Albumin/Globulin Ratio Urine Color Urine Turbidity Urine pH Ur Specific [place] Urine Protein Urine Glucose (UA) Urine Ketones Urine Blood Urine Nitrite Urine Bilirubin Urine Urobilinogen Ur Leukocyte Esterase Urine WBC (Auto) Urine RBC (Auto) U Epithel Cells (Auto) Urine Bacteria (Auto) Uric Acid Crystals Urine Mucus Urine Total Volume Ur Total Protein 24 Hr Urine Total Protein Urine Opiates Screen Urine Methadone Screen Ur Barbiturates Screen Ur Phencyclidine Scrn Ur Amphetamines Screen U Benzodiazepines Scrn Urine Cocaine Screen U Marijuana (THC) Screen Drugs of Abuse Note RPR Hep Bs Antigen Hepatitis C Antibody HIV 1&2 Antibody Rapid HIV P24 Antigen Rubella IgG Antibody Blood Type O NEGATIVE Antibody Screen Negative Screen Crossmatch See Detail 08/29/16 08/30/16 08/30/16 18:45 20:50 20:50 WBC RBC Hgb Hct MCV MCH MCHC RDW Plt Count Sodium Potassium Chloride Carbon Dioxide Anion Gap BUN Creatinine Estimated GFR BUN/Creatinine Ratio Glucose Hemoglobin A1c Calcium Magnesium 4.6 H 4.8 H Total Bilirubin AST ALT Alkaline Phosphatase Total Protein Albumin Albumin/Globulin Ratio Urine Color Urine Turbidity Urine pH Ur Specific [place] Urine Protein Urine Glucose (UA) Urine Ketones Urine Blood Urine Nitrite Urine Bilirubin Urine Urobilinogen Ur Leukocyte Esterase Urine WBC (Auto) Urine RBC (Auto) U Epithel Cells (Auto) Urine Bacteria (Auto) Uric Acid Crystals Urine Mucus Urine Total Volume Ur Total Protein 24 Hr Urine Total Protein Urine Opiates Screen Urine Methadone Screen Ur Barbiturates Screen Ur Phencyclidine Scrn Ur Amphetamines Screen U Benzodiazepines Scrn Urine Cocaine Screen U Marijuana (THC) Screen Drugs of Abuse Note RPR Hep Bs Antigen Hepatitis C Antibody HIV 1&2 Antibody Rapid HIV P24 Antigen Rubella IgG Antibody Blood Type O NEGATIVE Antibody Screen Negative Screen Negative Crossmatch 08/30/16 20:50 WBC RBC Hgb 7.9 L Hct 25.6 L MCV MCH MCHC RDW Plt Count Sodium Potassium Chloride Carbon Dioxide Anion Gap BUN Creatinine Estimated GFR BUN/Creatinine Ratio Glucose Hemoglobin A1c Calcium Magnesium Total Bilirubin AST ALT Alkaline Phosphatase Total Protein Albumin Albumin/Globulin Ratio Urine Color Urine Turbidity Urine pH Ur Specific [place] Urine Protein Urine Glucose (UA) Urine Ketones Urine Blood Urine Nitrite Urine Bilirubin Urine Urobilinogen Ur Leukocyte Esterase Urine WBC (Auto) Urine RBC (Auto) U Epithel Cells (Auto) Urine Bacteria (Auto) Uric Acid Crystals Urine Mucus Urine Total Volume Ur Total Protein 24 Hr Urine Total Protein Urine Opiates Screen Urine Methadone Screen Ur Barbiturates Screen Ur Phencyclidine Scrn Ur Amphetamines Screen U Benzodiazepines Scrn Urine Cocaine Screen U Marijuana (THC) Screen Drugs of Abuse Note RPR Hep Bs Antigen Hepatitis C Antibody HIV 1&2 Antibody Rapid HIV P24 Antigen Rubella IgG Antibody Blood Type Antibody Screen Screen Crossmatch
[2016-08-31] MEDS: PRENATAL VITAMIN PO SCH (09:59)
[2016-08-31] MEDS: FEOSOL PO SCH (09:59)
[2016-08-31] MEDS: NORMODYNE PO SCH ×2 (10:00→23:00)
[2016-08-31] MEDS: NORCO 5/325 PO PRN ×2 (10:00→14:57)
[2016-08-31] MEDS ORDERED: BOOSTRIX IM ONE (10:21)
[2016-08-31] MEDS ORDERED: M-M-R II VACCINE SUB-Q ONE (10:21)
[2016-08-31] MEDS ORDERED: FLUARIX QUAD 2016-2017(36 MOS+) IM ONE (12:00)
[2016-08-31] MEDS: APRESOLINE IV PRN (12:53)
[2016-08-31] MEDS: MOTRIN PO PRN ×2 (14:57→23:43)
[2016-09-01] MEDS ORDERED: BOOSTRIX IM ONE (06:00)
[2016-09-01] MEDS: MOTRIN PO PRN ×4 (06:01→23:53)
--- NOTE | 2016-09-01 07:33 | Progress Note ---
Assessment and Plan POD # 2 s/p Repeat LTCS and BTL -Feels dizzy P: -Repeat H&H now -Increase labetalol to 400 mg twice a day, consider added Procardia if no effect -Disposition after results - Patient Problems (1) 34 weeks gestation of Current Visit: Yes Status: Acute (2) No care in current Current Visit: Yes Status: Acute (3) Hypertension affecting Current Visit: Yes Status: Acute (4) Previous delivery affecting Current Visit: Yes Status: Acute Subjective - Subjective Date of service: 09/01/16 Principal diagnosis: s/p Repeat C Section with BTL - POD #2 Interval history: Patient seen and examined, she is feeling dizzy. Blood pressure still labile with systolic in the 160s Patient reports: appetite normal, voiding normally, dizzy ambulation, pain well controlled [place]: in NICU Objective - Vital Signs Latest vital signs: Vital Signs Temp Pulse Pulse Resp BP BP 09/01/16 06:01 18 09/01/16 04:30 62 20 163/92 09/01/16 00:00 98.8 F 80 20 151/90 08/31/16 23:43 18 08/31/16 23:00 80 158/95 08/31/16 20:50 69 20 158/95 08/31/16 15:26 98.0 F 94 H 20 142/66 08/31/16 14:57 20 08/31/16 13:35 82 156/97 08/31/16 12:53 80 163/108 08/31/16 12:00 98.2 F 80 20 163/108 08/31/16 10:00 83 18 156/99 08/31/16 07:51 98.2 F 80 20 162/100 Intake and Output 08/31/16 09/01/16 09/01/16 22:59 06:59 14:59 Intake Total 480 360 Balance 480 360 Intake: Oral 480 360 Other: Total, Intake Amount 240 120 # Voids Void 1 1 - Exam Abdomen: Present: normal appearance, soft. Absent: distention, tenderness, guarding, rigidity Uterus: Present: fundal height below umbilicus. Absent: tenderness Extremities: Present: normal
[2016-09-01 08:52] LABS: Hematocrit 23.8 % (30.3-42.9); Hemoglobin 7.3 gm/dl (10.1-14.3)
[2016-09-01] MEDS: FEOSOL PO SCH (09:56)
[2016-09-01] MEDS: NORMODYNE PO SCH ×2 (09:57→23:04)
[2016-09-01] MEDS: PRENATAL VITAMIN PO SCH (09:58)
[2016-09-01] MEDS ORDERED: NACL 0.9% 500 ML 500 ML IV NR (10:00)
[2016-09-01] MEDS ORDERED: FLUARIX QUAD 2016-2017(36 MOS+) IM ONE (13:00)
[2016-09-01] MEDS ORDERED: PROCARDIA XL PO SCH (15:00)
[2016-09-01 21:28] LABS: Hematocrit 28.4 % (30.3-42.9)
[2016-09-02] MEDS: PROCARDIA XL PO SCH ×2 (02:41→14:44)
[2016-09-02] MEDS: MOTRIN PO PRN ×2 (06:04→11:58)
--- NOTE | 2016-09-02 08:20 | Progress Note ---
Assessment and Plan POD # 3 s/p Repeat LTCS and BTL -stable P: -BP much better this a.m. -Possible discharge later today - Patient Problems (1) 34 weeks gestation of Current Visit: Yes Status: Acute (2) No care in current Current Visit: Yes Status: Acute (3) Hypertension affecting Current Visit: Yes Status: Acute (4) Previous delivery affecting Current Visit: Yes Status: Acute Subjective - Subjective Date of service: 09/02/16 Principal diagnosis: s/p Repeat C Section with BTL - POD #3 Interval history: Patient seen and examined, she is doing much better s/p 1 unit packed red blood cell. Blood pressure still labile but muched improved on Procardia 30mg XL Q12 and Labetalol 400mg BID Patient reports: appetite normal, voiding normally, pain well controlled, flatus , ambulating normally, no dizzy ambulation : doing well Objective - Vital Signs Latest vital signs: Vital Signs Temp Pulse Pulse Resp BP BP 09/02/16 06:04 18 09/02/16 05:25 74 18 147/80 09/02/16 00:53 18 09/01/16 23:53 18 09/01/16 23:30 98.0 F 72 18 142/93 09/01/16 23:04 80 168/98 09/01/16 20:40 18 168/98 09/01/16 20:03 18 09/01/16 16:54 99.2 F 80 18 154/105 09/01/16 16:24 99.4 F 67 18 167/95 09/01/16 15:50 99.5 F 67 18 167/96 09/01/16 15:20 99.0 F 61 18 171/94 09/01/16 15:09 99.2 F 80 20 201/122 09/01/16 15:05 99.0 F 73 18 161/103 09/01/16 11:53 97.9 F 80 14 167/99 09/01/16 09:57 112 H 163/86 09/01/16 08:34 98.3 F 77 18 166/86 Intake and Output 09/01/16 09/02/16 09/02/16 22:59 06:59 14:59 Intake Total 250 360 Balance 250 360 Intake: Oral 360 Blood Product 250 Leukoreduced Red Blood 250 Cells Unit [id number] Other: Total, Intake Amount 240 # Voids Void 1 - Exam Abdomen: Present: normal appearance, soft. Absent: distention, tenderness, guarding, rigidity Incision: Present: dry, intact - Labs Labs: Abnormal lab results 08/29/16 09/01/16 09/01/16 Range/Units 06:25 07:51 11:40 Hgb 7.3 L (10.1-14.3) gm/dl Hct 23.8 L (30.3-42.9) % Crossmatch See Detail See Detail 09/01/16 Range/Units 21:15 Hgb 9.0 L (10.1-14.3) gm/dl Hct 28.4 L (30.3-42.9) % Crossmatch
[2016-09-02] MEDS: FEOSOL PO SCH (10:12)
[2016-09-02] MEDS: NORMODYNE PO SCH (10:12)
[2016-09-02] MEDS: PRENATAL VITAMIN PO SCH (11:52)
--- NOTE | 2016-09-02 16:56 | Discharge Summary ---
Providers - Providers Date of Admission: 08/27/16 20:05 Date of discharge: 09/02/16 Attending physician: NIKUNJ MONROE 08/28/16 08:19 Consult to Physician [CONS] Routine Consulting Provider: MEETA GOODRICH I Reason For Exam: Elevtaed BP's at [address] consult to:: [facility] Notified:: DARYN Phone number called:: [phone] Was contact made?: Yes If yes, spoke with:: DARYN Time called:: 08:20 Primary care physician: [facility] Hospitalization Reason for admission: observation, other (No care) Delivery: Procedure: primary low transverse Incision: dry, intact Other procedures: none complications: transfusion (1 unit PRBC) Discharge diagnosis: delivery [place] baby: female Hospital course: A 25-year-old at 34+1 week (ALYSSA 10/07/16 via sono on 08/27/16 in triage) presents to [facility] for care. Essential history this patient with no care this . Was seen at an outside clinic and told to proceed to the hospital as her gestational age was too advanced. Gives a history of 2 prior complicated by pre-E Issues -BP ~ 140-180/60-100's -No PNC this -Previous 1 -Oral history of preeclampsia 2 -Fundal placenta w/ cephalic presentation -Negative HELLP labs -s/p [place] on 08/28/16 Patient was admitted for observation. 24 hr urine protein result was elevated at ~ 300. She continued to have elevated BP's MFM consult was requested and delivery was recommended Post-op course complicated by symptomatic anemia requiring 1 unit of PRBC BP remained elevated in the 160's/100's diastolic. This was controlled: Labetalol 400mg BID Procardia XL 30mg BID Condition at discharge: Good Disposition: DISCHARGED TO HOME OR SELFCARE - Discharge Diagnoses (1) 34 weeks gestation of Status: Acute (2) No care in current Status: Acute (3) Hypertension affecting Status: Acute (4) Previous delivery affecting Status: Acute Plan - Discharge Medications Prescriptions: Ferrous Sulfate [Feosol 325 MG tab] 325 mg PO BID #60 tablet Ibuprofen [Motrin] 800 mg PO Q8HR PRN #30 tablet PRN Reason: Moder Pain Unrelieved By [place] HYDROcodone/APAP 5-325 [[place] 5/325] 1 each PO Q6HR PRN #30 tablet PRN Reason: Pain Labetalol [Normodyne TAB] 200 mg PO BID #60 tablet Labetalol [Normodyne TAB] 400 mg PO BID #90 tablet Vit W-Ca,Fe,FA(<1 mg) [ Vitamins] 1 each PO DAILY #30 tablet NIFEdipine XL [Procardia Xl] 30 mg PO Q12HR #60 tab - Provider Discharge Summary Activity: no sex for 6 weeks, no heavy lifting 4 weeks, no strenuous exercise Diet: routine Instructions: other (BP check and call for elevated BP > 160 systolic or >100 diastolic) Additional instructions: [] Smoking cessation referral if applicable(refer to patient education folder for contact #) [] Refer to [facility] Booklet Call your doctor immediately for: * Fever > 100.5 * Heavy vaginal bleeding ( >1 pad per hour) * Severe persistent headache * Shortness of breath * Reddened, hot, painful area to leg or breast * Drainage or odor from incision. * Keep incision clean and dry at all times and follow doctor's instructions regarding bathing/showering - Follow up plan Follow up: PRIMARY CAREMD [Primary Care Provider] - 7 Days NIKUNJ MONROE MD [Staff Physician] - 7 Days Forms: [facility] Discharge Summary
[2016-09-02 19:04] VITALS: BP 134/77
== END 2016-09-02 17:20 | disposition home or self-care (01) | DRG 765 ==
LOC: TRG 14:23 → LD 18:24 → TRG 20:04 → LD 20:05 → APU 08-30 10:17 → OB 08-30 11:49
PROVIDERS: ADMIT Obstetrics & Gynecology Gynecology; ATTEND Obstetrics & Gynecology Gynecology
PROC: 10D00Z1 Extraction of Products of Conception, Low, Open Approach (ICD-10-PCS; principal; 2016-08-30)
PROC: 0UL70CZ Occlusion of Bilateral Fallopian Tubes with Extraluminal Device, Open Approach (ICD-10-PCS; 2016-08-30)
PROC: 30233S1 Transfusion of Nonautologous Globulin into Peripheral Vein, Percutaneous Approach (ICD-10-PCS; 2016-08-31)
PROC: 3E0234Z Introduction of Serum, Toxoid and Vaccine into Muscle, Percutaneous Approach (ICD-10-PCS; 2016-08-31)
PROC: 30233N1 Transfusion of Nonautologous Red Blood Cells into Peripheral Vein, Percutaneous Approach (ICD-10-PCS; 2016-09-01)
DX: O60.14X0 Preterm labor third trimester with preterm delivery third trimester, not applicable or unspecified (principal); O11.4 Pre-existing hypertension with pre-eclampsia, complicating childbirth; O34.211 Maternal care for low transverse scar from previous cesarean delivery; O43.893 Other placental disorders, third trimester; O99.214 Obesity complicating childbirth; O99.02 Anemia complicating childbirth; O69.81X0 Labor and delivery complicated by cord around neck, without compression, not applicable or unspecified; E66.9 Obesity, unspecified; D64.9 Anemia, unspecified; O09.33 Supervision of pregnancy with insufficient antenatal care, third trimester; Z37.0 Single live birth; Z3A.34 34 weeks gestation of pregnancy; Z68.32 Body mass index [BMI] 32.0-32.9, adult; Z30.2 Encounter for sterilization; Z23 Encounter for immunization; Z22.4 Carrier of infections with a predominantly sexual mode of transmission
CPT/HCPCS: 36415; 76805; 76819; 76820; 80053; 80307; 81001; 83036; 83735; 84156; 85014; 85018; 85027; 85461; 86592; 86706; 86762; 86803; 86850; 86870; 86900; 86901; 86920; 86922; 87806; 88307; 90471; 90686; 90715; 99211; C9250; G0463; J0360; J0690; J0702; J1200; J1885; J2250; J2270; J2370; J2405; J2590; J2765; J2790; J3475; J7040; J7120; P9016

== ENCOUNTER 2016-09-07 18:35 | Emergency (ER) | payer MEDICAID ==
[2016-09-07] MEDS ORDERED: ZOFRAN IV ONE (20:17)
[2016-09-07] MEDS ORDERED: MORPHINE IV ONE (20:17)
[2016-09-07] MEDS ORDERED: NACL 0.9% 1000 ML 1,000 ML IV ONE (20:17)
--- NOTE | 2016-09-07 20:33 | Emergency Department Report ---
ED Female HPI - General Chief complaint: Vaginal Bleeding Stated complaint: ABD PAIN/HEAVY BLEEDING W/CLOTS Time Seen by Provider: 09/07/16 20:08 Source: patient Mode of arrival: Ambulatory Limitations: No Limitations - History of Present Illness Initial comments: 25-year-old female presents to the emergency department complaining of abdominal pain and vaginal bleeding beginning suddenly at approximately 2:30 PM. Patient describes cramping lower abdominal pain that does not radiate. Vaginal bleeding consistent with bright red blood. She reports associated mild shortness of breath and lightheadedness. She has not loss consciousness. Patient states that she underwent a section one week ago at this hospital. This was compensated by blood loss requiring transfusion. There are no other complaints. MD Complaint: vaginal bleeding -: Gradual, This afternoon Time: 14:30 Location: suprapubic Radiation: non-radiating Severity: moderate Severity scale (0 -10): 7 Quality: cramping Consistency: constant Improves with: none Worsens with: none Are you Now?: No - Related Data Previous Rx's Medication Instructions Recorded Last Taken Type Ferrous Sulfate [Feosol 325 MG tab] 325 mg PO BID #60 tablet 08/30/16 09/07/16 Rx HYDROcodone/APAP 5-325 [[place] 1 each PO Q6HR PRN #30 tablet 08/30/16 09/07/16 Rx 5/325] Ibuprofen [Motrin] 800 mg PO Q8HR PRN #30 tablet 08/30/16 09/07/16 Rx Vit W-Ca,Fe,FA(<1 mg) 1 each PO DAILY #30 tablet 08/30/16 09/07/16 Rx [ Vitamins] Labetalol [Normodyne TAB] 400 mg PO BID #90 tablet 09/02/16 09/07/16 Rx NIFEdipine XL [Procardia Xl] 30 mg PO Q12HR #60 tab 09/02/16 09/07/16 Rx Methylergonovine [Methergine] 0.2 mg PO Q8HR #9 tablet 09/07/16 Unknown Rx Allergies Allergy/AdvReac Type Severity Reaction Status Date / Time No Known Allergies Allergy Verified 02/02/16 02:25 ED Review of Systems ROS: Stated complaint: ABD PAIN/HEAVY BLEEDING W/CLOTS Other details as noted in HPI Comment: All other systems reviewed and negative Gastrointestinal: abdominal pain Genitourinary: as per HPI, abnormal menses ED Past Medical Hx - Past Medical History Previous Medical History?: Yes Hx Hypertension: Yes (severe pre-eclampsia) Hx Congestive Heart Failure: No Hx Diabetes: No Hx Deep Vein Thrombosis: No Hx Renal Disease: No Hx Sickle Cell Disease: No Hx Seizures: No Hx Asthma: No Hx COPD: No Hx HIV: No - Surgical History Past Surgical History?: Yes Additional Surgical History: - Family History Family history: no significant - Social History Smoking Status: Never Smoker Substance Use Type: None - Medications Home Medications: Home Medications Medication Instructions Recorded Confirmed Last Taken Type Ferrous Sulfate [Feosol 325 MG tab] 325 mg PO BID #60 tablet 08/30/16 09/07/16 09/07/16 Rx HYDROcodone/APAP 5-325 [[place] 1 each PO Q6HR PRN #30 tablet 08/30/16 09/07/16 Rx 5/325] Ibuprofen [Motrin] 800 mg PO Q8HR PRN #30 tablet 08/30/16 09/07/16 09/07/16 Rx Vit W-Ca,Fe,FA(<1 mg) 1 each PO DAILY #30 tablet 08/30/16 09/07/16 Rx [ Vitamins] Labetalol [Normodyne TAB] 400 mg PO BID #90 tablet 09/02/16 09/07/16 09/07/16 Rx NIFEdipine XL [Procardia Xl] 30 mg PO Q12HR #60 tab 09/02/16 09/07/16 09/07/16 Rx Methylergonovine [Methergine] 0.2 mg PO Q8HR #9 tablet 09/07/16 Unknown Rx ED Physical Exam - General Limitations: No Limitations General appearance: alert, in distress (mild distress secondary to pain) - Head Head exam: Present: atraumatic, normocephalic - Eye Eye exam: Present: normal appearance, PERRL, EOMI - ENT ENT exam: Present: normal exam, normal orophraynx, mucous membranes moist - Neck Neck exam: Present: normal inspection, full ROM. Absent: tenderness - Respiratory Respiratory exam: Present: normal lung sounds bilaterally. Absent: respiratory distress - Cardiovascular Cardiovascular Exam: Present: normal rhythm, tachycardia, normal heart sounds - GI/Abdominal GI/Abdominal exam: Present: soft, tenderness (mild suprapubic tenderness to palpation), normal bowel sounds, other (lower abdominal surgical incision appears well-healed.). Absent: distended, guarding, rebound - Extremities Exam Extremities exam: Present: normal inspection, full ROM. Absent: tenderness - Back Exam Back exam: Present: normal inspection, full ROM. Absent: tenderness - Neurological Exam Neurological exam: Present: alert, oriented X3. Absent: motor sensory deficit - Skin Skin exam: Present: warm, dry, intact ED Course Vital Signs 09/07/16 21:09 Respiratory 20 Rate - Consultations Consultation #1: 09/07/16 22:12 I had previously spoken with Dr. Cano, [employer]. He requested the patient be given 10 units of Pitocin and 800 g of Cytotec rectally. He also requested an ultrasound. Ultrasound results were discussed with Dr. Cano. He states the patient can be discharged home on 0.2 mg of Methergine times a day for 3 days and follow-up as an outpatient. ED Medical Decision Making - Lab Data Result diagrams: 09/07/16 20:31 09/07/16 20:31 - Radiology Data Radiology results: report reviewed Ultrasound of the pelvis reveals retained products of conception in the endometrial cavity - Medical Decision Making Lab and imaging results reviewed and discussed the patient. Patient reports her pain is totally resolved and her bleeding has markedly improved. Recommendations of [employer] were discussed and the patient agrees with the plan of care. Patient will be discharged home at this time. - Differential Diagnosis vaginal bleeding, anemia Critical care attestation.: If time is entered above; I have spent that time in minutes in the direct care of this critically ill patient, excluding procedure time. ED Disposition Clinical Impression: Retained products of conception with hemorrhage Disposition: DISCHARGED TO HOME OR SELFCARE Is pt being admited?: No Condition: Stable Instructions: Bleeding (ED) Prescriptions: Methylergonovine [Methergine] 0.2 mg PO Q8HR #9 tablet Referrals: JOSE FELICIANO MD [Staff Physician] - 3-5 Days Time of Disposition: 22:17
[2016-09-07 20:45] LABS: Hematocrit 33.5 % (30.3-42.9); Hemoglobin 10.4 gm/dl (10.1-14.3); Mean Corpuscular HGB Conc 31 % (30-34); Mean Corpuscular Volume 71 fl (79-97); Platelet Count 244 K/mm3 (140-440); Red Cell Distribution Width 19.9 % (13.2-15.2)
[2016-09-07 20:50] LABS: Mean Corpuscular Hemoglobin 22 pg (28-32); White Blood Count 20.3 K/mm3 (4.5-11.0)
[2016-09-07 20:57] LABS: INR 0.99 (0.87-1.13)
[2016-09-07] MEDS ORDERED: CYTOTEC PR ONE (21:01)
[2016-09-07] MEDS ORDERED: PITOCin/NS 20 UNIT/1000ML DRIP 1,000 ML IV ONE (21:01)
[2016-09-07 21:03] LABS: Anion Gap 17 mmol/L; BUN/Creatinine Ratio 16.66; Blood Urea Nitrogen 10 mg/dL (7-17); Calcium 8.6 mg/dL (8.4-10.2); Carbon Dioxide 25 mmol/L (22-30); Chloride 100.3 mmol/L (98-107); Glucose 92 mg/dL (65-100); Potassium 4.2 mmol/L (3.6-5.0); Sodium 138 mmol/L (137-145)
--- NOTE | 2016-09-07 21:58 | Ultrasound Report ---
FINAL REPORT EXAM: US TRANSVAGINAL HISTORY: pelvic pain, vaginal bleeding, 1 week s/p c-sect COMPARISON: None available. TECHNIQUE: Several real-time grayscale and color Doppler images were obtained. Transabdominal and transvaginal exam. FINDINGS: Heterogeneous material occupying the endometrial canal measuring up to 4.8 centimeters in thickness. This is concerning for retained products given the patient's history. Uterus measures 16.2 x 8.3 x 9.9 centimeters compatible patient's recent state. Ovaries are not visualized. No adnexal masses are demonstrated. IMPRESSION: Heterogeneous material occupying the endometrial canal measuring up to 4.8 centimeters in thickness. Findings are concerning for retained products.
--- NOTE | 2016-09-07 21:58 | Ultrasound Report ---
FINAL REPORT EXAM: US PELVIC COMPLETE HISTORY: pelvic pain, vaginal bleeding, 1 week s/p c-sect COMPARISON: None of the state. TECHNIQUE: Several real-time grayscale and color Doppler images were obtained. Transabdominal and transvaginal exam. FINDINGS: Heterogeneous material occupying the endometrial canal measuring up to 4.8 centimeters in thickness. This is concerning for retained products given the patient's history. Uterus measures 16.2 x 8.3 x 9.9 centimeters compatible patient's recent state. Ovaries are not visualized. No adnexal masses are demonstrated. IMPRESSION: Heterogeneous material occupying the endometrial canal measuring up to 4.8 centimeters in thickness. Findings are concerning for retained products.
[2016-09-07 22:16] LABS: Basophils % (Manual) 0 % (0.0-1.8); Blastocytes % (Manual) 0 %; Eosinophils % (Manual) 0 % (0.0-4.3)
[2016-09-07 22:17] LABS: Diff Status Complete; Elliptocytes 1+; Platelet Estimate Consistent w Auto; Tear Drop Cells 1+
[2016-09-07 23:03] VITALS: BP 128/95
== END 2016-09-07 23:00 | disposition home or self-care (01) ==
LOC: ED 18:35
DX: N93.9 Abnormal uterine and vaginal bleeding, unspecified (principal)
CPT/HCPCS: 36415; 76830; 76856; 80048; 85007; 85025; 85610; 86850; 86870; 86900; 86901; 96361; 96374; 96375; 99284; J2270; J2405; J2590; J7030

== ENCOUNTER 2016-09-15 07:49 | Emergency (ER) | payer MEDICAID ==
[2016-09-15 08:45] VITALS: BP 136/96
--- NOTE | 2016-09-15 11:53 | Emergency Department Report ---
HPI - General Chief Complaint: Wound/Laceration Time Seen by Provider: 09/15/16 11:43 - HPI HPI: Patient is a 25-year-old female who presents with a incision pain 2 days. Patient states she had on 08/30/2016 with no complications. Patient states she feels still wound opened up it 2 days ago. Patient describes pain as throbbing in nature localized incision area. Patient states she's been putting gauze on the area and has noticed pinkish tinged discharge, and at the wound. Patient denies fevers/chills/nausea/vomiting/abdominal pain as chest pain/ vaginal bleeding /shortness of breath/dizziness or any other problems. ED Past Medical Hx - Past Medical History Hx Hypertension: Yes (severe pre-eclampsia) Hx Congestive Heart Failure: No Hx Diabetes: No Hx Deep Vein Thrombosis: No Hx Renal Disease: No Hx Sickle Cell Disease: No Hx Seizures: No Hx Asthma: No Hx COPD: No Hx HIV: No Additional medical history: ANEMIA - Surgical History Additional Surgical History: X 2 - Social History Smoking Status: Never Smoker Substance Use Type: Prescribed - Medications Home Medications: Home Medications Medication Instructions Recorded Confirmed Last Taken Type Ferrous Sulfate [Feosol 325 MG tab] 325 mg PO BID #60 tablet 08/30/16 09/07/16 09/07/16 Rx Vit W-Ca,Fe,FA(<1 mg) 1 each PO DAILY #30 tablet 08/30/16 09/07/16 Rx [ Vitamins] Labetalol [Normodyne TAB] 400 mg PO BID #90 tablet 09/02/16 09/07/16 09/07/16 Rx NIFEdipine XL [Procardia Xl] 30 mg PO Q12HR #60 tab 09/02/16 09/07/16 09/07/16 Rx Methylergonovine [Methergine] 0.2 mg PO Q8HR #9 tablet 09/07/16 Unknown Rx Cephalexin [Keflex] 500 mg PO BID #14 capsule 09/15/16 Unknown Rx HYDROcodone/APAP 5-325 [[place] 1 each PO Q6HR PRN #30 tablet 09/15/16 Unknown Rx 5-325 mg TAB] Ibuprofen [Motrin 800 MG tab] 800 mg PO Q8HR PRN #30 tablet 01/23/17 Unknown Rx ED Review of Systems ROS: Stated complaint: C SECTION INCISION OPENED Other details as noted in HPI Constitutional: denies: chills, fever Eyes: denies: eye pain, eye discharge, vision change ENT: denies: ear pain, throat pain, dental pain, hearing loss Respiratory: denies: cough, orthopnea, shortness of breath, wheezing Cardiovascular: denies: chest pain, palpitations Endocrine: no symptoms reported Gastrointestinal: denies: abdominal pain, nausea, vomiting, diarrhea, constipation, hematemesis Genitourinary: denies: urgency, dysuria, discharge Musculoskeletal: denies: back pain, joint swelling, arthralgia Skin: denies: rash, lesions Neurological: denies: headache, weakness, numbness, paresthesias, confusion, abnormal gait Psychiatric: denies: anxiety, depression, auditory hallucinations, visual hallucinations, suicidal thoughts Hematological/Lymphatic: denies: easy bleeding, easy bruising Physical Exam - Physical Exam Vital Signs: Vital Signs 09/15/16 08:35 Temperature 98.0 F Pulse Rate 96 H Respiratory 18 Rate Blood Pressure 136/96 O2 Sat by Pulse 98 Oximetry Physical Exam: GENERAL: Alert and oriented x3, no apparent distress, Normal Gait, atraumatic. HEAD: Head is normocephalic and a-traumatic. EYES: Extra ocular muscles are intact. Pupils are equal, round, and reactive to light and accommodation. EARS: symetrical, atraumatic, non tender, ear canal clear and moderate cerumen, tympanic membrance non inflamed. gross auditory nml bilaterally. NOSE: Nose symetrical, Nontender,Nares appeared normal. MOUTH:Mouth is well hydrated and without lesions. Tonsils nonerythematous or swollen, Uvula midline, Tongue not elevated. Mucous membranes are moist. Posterior pharynx clear, no exudate or lesions. Patent airways. NECK: Supple. Non edematous, No carotid bruits. No lymphadenopathy or thyromegaly. LUNGS: Symetrical with respiration, No wheezing, no rales or crackles, CTAB. HEART: S1, S2 present, regular rate and rhythm without murmur, no rubs, no gallops. ABDOMEN: No organomegaly was noted,Positive bowel sounds, soft, and non- distended. . Nontender to palpation on all Quadrants, NO CVA tenderness. Fundus palpated underneath umbilicus, non tender. SKIN: Warm and dry, No lesions, No ulceration or induration present. Insicion mildly draining serosagious liquid from the mid section of the incision otherwise closed wound, non erythematous, No wound dehiscence present. ED Course Vital Signs 09/15/16 08:35 Temperature 98.0 F Pulse Rate 96 H Respiratory 18 Rate Blood Pressure 136/96 O2 Sat by Pulse 98 Oximetry ED Medical Decision Making - Medical Decision Making 25-year-old female presents 2 weeks post with incision and drainage. Patient's incision cleaned and dried and sterilely wrapped. Patient received 1 [place] in the ED one time. Discussed the patient to follow up with Dr. Nevarez as soon as possible. Discussed the patient to continue [place] every 6 hours and ibuprofen 800 mg every 8 hours as prescribed for pain. Discussed the patient to rest and no physical activity until visit to Dr. Nevarez. Discussed the patient to take medication as described and to keep still on antibiotics. Patient states she will call the office today began appointment today. Patient verbally states she understands and will comply to follow-up. Critical care attestation.: If time is entered above; I have spent that time in minutes in the direct care of this critically ill patient, excluding procedure time. ED Disposition Clinical Impression: Complication of section wound, Status post Disposition: DISCHARGED TO HOME OR SELFCARE Is pt being admited?: No Does the pt Need Aspirin: No Condition: Stable Instructions: Acute Wound Care (ED), Wound Infection (ED) Additional Instructions: Follow-up with her [employer] doctor Dr. Nevarez in 3-5 days Take medication as prescribed Chief sterile dressing on wound Change dressing twice a day. Applied topical ointment. Take antibiotic as prescribed. Prescriptions: Cephalexin [Keflex] 500 mg PO BID #14 capsule Ibuprofen [Motrin 800 MG tab] 800 mg PO Q8HR PRN #30 tablet PRN Reason: Moder Pain Unrelieved By [place] HYDROcodone/APAP 5-325 [[place] 5-325 mg TAB] 1 each PO Q6HR PRN #30 tablet PRN Reason: Pain Referrals: [facility] [Outside] - 3-5 Days [facility] [Outside[facility] - 3-5 Days [facility] [Outside] - 3-5 Days [facility] [Outside] - 3-5 Days PRIMARY CARE, [Primary Care Provider] - 3-5 Days JOSE NEVAREZ MD [Staff Physician] - 3-5 Days Forms: Work/School Release Form(ED) Time of Disposition: 11:57
[2016-09-15] MEDS ORDERED: NORCO 10/325 PO ONE (12:02)
== END 2016-09-15 13:07 | disposition home or self-care (01) ==
LOC: ED 07:49
DX: T81.89XA Other complications of procedures, not elsewhere classified, initial encounter (principal); I10 Essential (primary) hypertension; Z98.890 Other specified postprocedural states
CPT/HCPCS: 99282

== ENCOUNTER 2017-04-15 15:38 | Emergency (ER) | payer SELFPAY ==
[2017-04-15 18:08] LABS: Bilirubin,Urine NEG (Negative); Blood,Urine NEG (Negative); Ketones,Urine TR mg/dL (Negative); Leukocyte Esterase,Urine TR (Negative); Mucus,Urine 3+ /HPF; Nitrite,Urine NEG (Negative); Protein,Urine <15 mg/dL mg/dL (Negative); Urobilinogen,Urine < 2.0 mg/dL (<2.0)
[2017-04-15 20:18] VITALS: BP 150/92
--- NOTE | 2017-04-15 20:28 | Emergency Department Report ---
Entered by CONCEPCION BELL, acting as scribe for TD FELIX PA. ED Female HPI - General Chief complaint: Abdominal Pain Stated complaint: SEVERE BACK PX/POSS UTI Time Seen by Provider: 04/15/17 17:12 Source: patient Mode of arrival: Ambulatory Limitations: No Limitations - History of Present Illness Initial comments: 26 y/o female with a PMHx of severe pre-eclampsia and anemia presents to the ED c/o intermittent low pelvic pain that began 2 weeks ago. Rates pain an 8/10 in severity, which she describes as tight in quality. Aggravated with movement and palpation, and alleviated with immobilization. Associated symptoms include 8/10 low back pain, urgency, and frequency, but she denies fever, chills, nausea, vomiting, incontinence, hematuria, vaginal discharge, and hematuria. Patient states she believes she has an urinary tract infection. NKDA. GROSS Complaint: pelvic pain Onset/Timin -: week(s) Location: other (low pelvic area) Radiation: non-radiating Severity: severe Severity scale (0 -10): 8 Quality: other (tight) Consistency: intermittent Improves with: none Worsens with: movement Are you Now?: No Last Menstrual Period: 04/12/17 EDC: 01/17/18 Associated Symptoms: denies other symptoms, abdominal pain (low pelvic pain), other (urgency, frequency, and low back pain). denies: vaginal discharge, vaginal bleeding, nausea/vomiting, fever/chills, headaches, loss of appetite, dysuria, hematuria, rash, seizure, shortness of breath, syncope, weakness - Related Data Sexually active: No Previous Rx's Medication Instructions Recorded Last Taken Type Ferrous Sulfate [Feosol 325 MG tab] 325 mg PO BID #60 tablet 08/30/16 09/07/16 Rx Vit W-Ca,Fe,FA(<1 mg) 1 each PO DAILY #30 tablet 08/30/16 09/07/16 Rx [ Vitamins] Labetalol [Normodyne TAB] 400 mg PO BID #90 tablet 09/02/16 09/07/16 Rx NIFEdipine XL [Procardia Xl] 30 mg PO Q12HR #60 tab 09/02/16 09/07/16 Rx Methylergonovine [Methergine] 0.2 mg PO Q8HR #9 tablet 09/07/16 Unknown Rx Cephalexin [Keflex] 500 mg PO BID #14 capsule 09/15/16 Unknown Rx HYDROcodone/APAP 5-325 [[place] 1 each PO Q6HR PRN #30 tablet 09/15/16 Unknown Rx 5-325 mg TAB] Ibuprofen [Motrin 800 MG tab] 800 mg PO Q8HR PRN #30 tablet 09/15/16 Unknown Rx Allergies Allergy/AdvReac Type Severity Reaction Status Date / Time No Known Allergies Allergy Verified 09/15/16 08:37 ED Review of Systems Comment: All other systems reviewed and negative Constitutional: denies: chills, fever Eyes: denies: eye pain, eye discharge, vision change ENT: denies: ear pain, throat pain Respiratory: denies: cough, orthopnea, shortness of breath, SOB with exertion, SOB at rest, stridor, wheezing Cardiovascular: denies: chest pain, palpitations, dyspnea on exertion, orthopnea , edema, syncope, paroxysmal nocturnal dyspnea Endocrine: no symptoms reported Gastrointestinal: abdominal pain (low pelvic pain). denies: nausea, vomiting, diarrhea, constipation, hematemesis, melena, hematochezia Genitourinary: urgency, frequency. denies: dysuria, hematuria, discharge, abnormal menses, dyspareunia Musculoskeletal: back pain (low back pain). denies: joint swelling, arthralgia , myalgia Skin: denies: rash, lesions Neurological: denies: headache, weakness, numbness, paresthesias Psychiatric: denies: anxiety, depression Hematological/Lymphatic: denies: easy bleeding, easy bruising ED Past Medical Hx - Past Medical History Previous Medical History?: Yes Hx Hypertension: Yes (severe pre-eclampsia) Hx Congestive Heart Failure: No Hx Diabetes: No Hx Deep Vein Thrombosis: No Hx Renal Disease: No Hx Sickle Cell Disease: No Hx Seizures: No Hx Asthma: No Hx COPD: No Hx HIV: No Additional medical history: ANEMIA - Surgical History Past Surgical History?: Yes Additional Surgical History: X 2 - Family History Family history: no significant - Social History Smoking Status: Never Smoker Substance Use Type: Marijuana - Medications Home Medications: Home Medications Medication Instructions Recorded Confirmed Last Taken Type Ferrous Sulfate [Feosol 325 MG tab] 325 mg PO BID #60 tablet 01/07/17 01/15/17 01/15/17 Rx Vit W-Ca,Fe,FA(<1 mg) 1 each PO DAILY #30 tablet 08/30/16 09/07/16 Rx [ Vitamins] Labetalol [Normodyne TAB] 400 mg PO BID #90 tablet 09/02/16 09/07/16 09/07/16 Rx NIFEdipine XL [Procardia Xl] 30 mg PO Q12HR #60 tab 09/02/16 09/07/16 09/07/16 Rx Methylergonovine [Methergine] 0.2 mg PO Q8HR #9 tablet 09/07/16 Unknown Rx Cephalexin [Keflex] 500 mg PO BID #14 capsule 09/15/16 Unknown Rx HYDROcodone/APAP 5-325 [[place] 1 each PO Q6HR PRN #30 tablet 09/15/16 Unknown Rx 5-325 mg TAB] Ibuprofen [Motrin 800 MG tab] 800 mg PO Q8HR PRN #30 tablet 09/15/16 Unknown Rx ED Physical Exam - General Limitations: No Limitations General appearance: alert, in no apparent distress - Head Head exam: Present: atraumatic, normocephalic - Eye Eye exam: Present: normal appearance, PERRL, EOMI Pupils: Present: normal accommodation - ENT ENT exam: Present: normal exam, mucous membranes moist, normal external ear exam - Neck Neck exam: Present: normal inspection, full ROM. Absent: tenderness, meningismus, lymphadenopathy - Respiratory Respiratory exam: Present: normal lung sounds bilaterally. Absent: respiratory distress, wheezes, rales, rhonchi, stridor, chest wall tenderness, accessory muscle use, decreased breath sounds - Cardiovascular Cardiovascular Exam: Present: regular rate, normal rhythm, normal heart sounds. Absent: systolic murmur, diastolic murmur - GI/Abdominal GI/Abdominal exam: Present: soft, normal bowel sounds. Absent: distended, tenderness, guarding, rebound, rigid, organomegaly, mass, bruit, pulsatile mass , hernia - Extremities Exam Extremities exam: Present: normal inspection, full ROM, normal capillary refill. Absent: tenderness, pedal edema, joint swelling, calf tenderness - Back Exam Back exam: Present: normal inspection, full ROM. Absent: tenderness, CVA tenderness (R), CVA tenderness (L), muscle spasm, paraspinal tenderness, vertebral tenderness, rash noted - Neurological Exam Neurological exam: Present: alert, oriented X3, normal gait, reflexes normal, other (no focal neurological deficit). Absent: motor sensory deficit - Psychiatric Psychiatric exam: Present: normal affect, normal mood - Skin Skin exam: Present: warm, dry, intact, normal color. Absent: rash, cyanosis ED Course Vital Signs 04/15/17 04/15/17 16:06 17:30 Temperature 97.9 F Pulse Rate 109 H 96 H Respiratory 16 Rate Blood Pressure 153/102 Blood Pressure 150/92 [Left] O2 Sat by Pulse 99 Oximetry - Reevaluation(s) Reevaluation #1: 04/15/17 17:30 Discussed with patient that her urine result was negative for bacterial infection and urine cultures were sent. I also discussed with her that she is dehydrated and need to drink more fluids. ED Medical Decision Making - Lab Data Lab Results 04/15/17 Range/Units Unknown Urine Color Yellow (Yellow) Urine Turbidity Clear (Clear) Urine pH 5.0 (5.0-7.0) Ur Specific [place] 1.027 (1.003-1.030) Urine Protein <15 mg/dl (Negative) mg/dL Urine Glucose (UA) Neg (Negative) mg/dL Urine Ketones Tr (Negative) mg/dL Urine Blood Neg (Negative) Urine Nitrite Neg (Negative) Ur Reducing Substances Not Reportable Urine Bilirubin Neg (Negative) Urine Ictotest Not Reportable Urine Urobilinogen < 2.0 (<2.0) mg/dL Ur Leukocyte Esterase Tr (Negative) Urine WBC (Auto) 1.0 (0.0-6.0) /HPF Urine RBC (Auto) 5.0 (0.0-6.0) /HPF U Epithel Cells (Auto) 1.0 (0-13.0) /HPF Urine Mucus 3+ /HPF Urine HCG, Qual Negative (Negative) Urine culture pending - Medical Decision Making ED course: Patient here complaining in the lower back pain in both sides with urinary frequency and says she thinks she has urinary tract infection. She denies any blood in her urine. Denies any fever or chills. She denies any abdominal pain despite triage note saying patient with abdominal pain. Patient states that she is having lower back pain and not flank pain. Urinalysis reveals no bacterial infection with mild ketones in her urine. Urine culture sent and pending. Results discussed with patient and she voiced understanding. Assessment/plan 1. Urinary frequency-patient is not diabetic and she does not have any increased thirst and no need for increase fluid intake. 2. Lower back pain. 3. Elevated blood pressure reading with history of high blood pressure I discussed the patient that she needs to increase her fluid intake and that her urinalysis was negative for infection but cultures were sent off and she will be called if she needs to be placed on medication. I also discussed with patient that her blood pressure was elevated even though it's better that she will need to keep a log and monitor and schedule an appointment to see primary care for evaluation and treatment. I discussed with her she needs to follow up with her primary care and if she does not have one she can follow-up with [facility]. ED Disposition Clinical Impression: Urinary frequency, Elevated systolic blood pressure reading with diagnosis of hypertension Disposition: DC-01 TO HOME OR SELFCARE Is pt being admited?: No Does the pt Need Aspirin: No Condition: Stable Instructions: Hypertension (ED), Back Pain (ED) Additional Instructions: Please follow up at [facility] as discussed Please increase your fluid intake and lower Your salt intake Keep a log a few blood pressure and take to primary care physician with [facility] Referrals: [facility] [Outside] - 04/17/17 Forms: Work/School Release Form(ED) This documentation as recorded by the ARABELLA mcallister JASMINE,accurately reflects the service I personally performed and the decisions made by me,TD FELIX PA.
== END 2017-04-15 17:30 | disposition home or self-care (01) ==
LOC: ED 15:38
DX: R35.0 Frequency of micturition (principal); I10 Essential (primary) hypertension; F12.10 Cannabis abuse, uncomplicated
CPT/HCPCS: 81001; 81025; 87086

== ENCOUNTER 2017-08-25 22:25 | Emergency (ER) | payer SELFPAY | END 2017-08-25 23:39 | disposition left against medical advice (07) | LOC: ED 22:25 | DX: N39.0 Urinary tract infection, site not specified (principal); Z53.21 Procedure and treatment not carried out due to patient leaving prior to being seen by health care provider ==